=== PATIENT | female | born 1990 | race Caucasian/White ===

== ENCOUNTER 2018-06-09 23:07 | Emergency (ER) | payer BC, OTHER ==
[2018-06-10] MEDS: TRIAMCINOLONE ACET 40 MG/ML INJ INJ (00:06)
[2018-06-10] MEDS: LIDOCAINE 1% (MDV) 20 ML INJ SC (00:06)
== END 2018-06-10 00:20 | disposition home or self-care (01) ==
LOC: FTE 23:07
DX: M25.511 Pain in right shoulder (principal)
CPT/HCPCS: 73030; 73030-RT; 99283-25